=== PATIENT | female | born 1985 | race Caucasian/White ===

== ENCOUNTER 2017-07-27 10:13 | Observation (INO) ==
[2017-07-27] MEDS ORDERED: IOPAMIDOL 100 ML BOTTLE IV ONE (10:14)
[2017-07-27] MEDS ORDERED: ONDANSETRON 4 MG/2 ML VIAL IV ONE (10:33)
[2017-07-27] MEDS: fentaNYL 100 MCG/2 ML VIAL IV PRN ×2 (10:41→11:41)
[2017-07-27] MEDS ORDERED: 0.9 % SODIUM CHLORIDE 1,000 ML IV ONE (10:52)
[2017-07-27 11:06] LABS: Basophils # (Auto) 0.1 K/mcL (0.0-0.3); Basophils % (Auto) 0.8 % (0.0-2.0); Eosinophils # (Auto) 0.1 K/mcL (0.0-0.7); Eosinophils % (Auto) 0.7 % (0.0-7.0); Granulocytes % (Auto) 84.5 % (38.0-78.0); Mean Cell Volume 91.4 fL (80.0-100.0); Mean Corpuscular HGB Conc 33.2 g/dL (31.0-36.0); Mean Corpuscular Hemoglobin 30.3 pg (26.0-34.0); Monocytes # (Auto) 0.5 K/mcL (0.1-0.9); Platelet Count 266 K/mcL (140-440); RBC 4.62 M/mcL (4.00-5.20)
[2017-07-27 11:23] LABS: ALT/SGPT 15 U/l (0-40); Albumin 4.5 gm/dL (3.2-5.2); Albumin/Globulin Ratio 1.7 (1.0-2.3); Alkaline Phosphatase 67 U/L (39-117); Blood Urea Nitrogen 10 mg/dl (6-20); Lipase 53 U/L (7-60)
[2017-07-27 11:58] LABS: Appearance,Urine CLEAR; Bacteria,Urine 0 /hpf (0); Bilirubin,Urine NEG (NEG); Color,Urine STRAW; Glucose,Urine (UA) NEGATIVE (NEG); Leukocyte Esterase,Urine NEG /uL (NEG); Protein,Urine NEG (NEG); Specific Gravity,Urine 1.008 (1.000-1.035); Urine Blood NEG mg/dL (<0.03); Urine RBC 1 /hpf (0-1); Urine Squamous Epithelial Cell < 1 /hpf (0-4); Urine WBC 1 /hpf (0-4); Urobilinogen,Urine NEG (NEG)
--- NOTE | 2017-07-27 12:59 | Cat Scan Report ---
CLINICAL INFORMATION: Left upper quadrant pain, fever and elevated white blood cell count COMPARISON: None. TECHNIQUE: Following enteric contrast, 80 cc of Isovue-300 were injected intravenously, and 60 seconds later, 0.625 mm helical slices were obtained from the mid heart through the subtrochanteric regions. Following reconstruction, 2.5 mm sagittal, coronal and axial reformatted images were processed and reviewed at bone, lung and soft tissue windows. Five minutes later, 0.625 mm helical slices were obtained from the mid heart through the kidneys and viewed at soft tissue windows.The exam was performed using radiation dose optimization techniques including, but not limited to, automated exposure control, adjustment of the mA and/or kV according to patient size and use of iterative reconstruction technique. FINDINGS: Lung bases show no abnormality - no effusion. Visualized heart is normal. Images through the abdomen show moderate hepatomegaly (19 cm in vertical dimension at mid clavicular line) with diffuse fatty change. There are no no focal hepatic lesions. Mild periportal edema is noted. The gallbladder and bile ducts are normal. CBD is 5 mm. Both kidneys, adrenal glands, spleen, pancreas and aorta, including aortic branches, are normal in size, configuration and attenuation without focal lesion. Stomach, small and large bowel show mild symmetric dilatation about mild ileus. Small amount of free fluid in the deep true pelvis. The appendix is slightly dilated - 11 mm however, there is no wall thickening or inflammation in the periappendiceal fat. Two small appendicoliths, less than 4 mm, in the appendiceal lumen. Uterus is anteflexed and normal in size - 8.8 x 4.2 cm. The region of the ovaries are normal. Bone windows show no osseous abnormality IMPRESSION: 1. Moderate hepatomegaly. Portal triad edema which may represent a primary hepatocellular process such as hepatitis. Please correlate with LFTs. 2. Mild ileus 3. Mild dilatation of the appendix, but no definite supportive evidence for appendicitis. Interpreted and Authenticated by: Ruben Perez 07/27/17
--- NOTE | 2017-07-27 13:11 | XRay Report ---
CLINICAL INFORMATION: Chest pain, fever, elevated wbc COMPARISON: None. FINDINGS: The heart size, mediastinum and pulmonary vessels are unremarkable. The lungs are clear. There are no effusions. The bones and soft tissues are within normal limits. IMPRESSION: Normal chest. Interpreted and Authenticated by: Ruben Perez 07/27/17
--- NOTE | 2017-07-27 13:48 | Emergency Department Note ---
ED Note Addendum Note Addendum: Patient been evaluated with nurse practitioner Emelia is mostly complaining of left upper quadrant pain but is having some right lower quadrant pain is white count is elevated and CT does reveal possible early dilated appendix agree with diagnosis and treatment and consult to Dr. Ceja will admit the patient for further evaluation for acute abdomen
[2017-07-27] MEDS ORDERED: PIPERACILLIN SODIUM/TAZOBACTAM 3.375 GM in DEXTROSE 5% IN WATER 50 ML IV ONE (14:11)
--- NOTE | 2017-07-27 14:14 | Emergency Department Note ---
Abdominal Pain HPI - General Chief Complaint: Abdominal Pain Stated Complaint: left upper abdominal pain, under rib Time Seen by Provider: 07/27/17 10:32 Source: patient Mode of arrival: wheelchair Limitations: no limitations - History of Present Illness HPI Narrative: 32-year-old female presents with left upper quadrant abdominal pain since yesterday. States the pain is all over her abdomen but seems to be worse in the left upper quadrant. Is better if she lies in a position. However it still hurts at all times. She has never had anything like this before. Positive chills, unknown fever. Positive nausea. No vomiting. States she has had soft stools but no diarrhea. Does have decreased appetite. No dysuria or frequency. No vaginal drainage. States she does smoke cigarettes as well as marijuana. No other home treatments. Associated symptoms: Reports: nausea, chills, anorexia. Denies: vomiting, diarrhea, constipation, dysuria, hematemesis, hematuria, syncope - Related Data Previous Rx's Medication Instructions Recorded traMADol [Ultram] 50 - 100 mg PO Q4-6HP PRN #20 tab 04/06/17 Allergies Allergy/AdvReac Type Severity Reaction Status Date / Time codeine Allergy Unknown Unknown Verified 07/27/17 10:16 morphine Allergy Unknown Unknown Verified 07/27/17 10:16 latex AdvReac Intermediate Hives Verified 07/27/17 10:16 Review of Systems All systems ED: reviewed and negative except as stated. Abdominal Pain PMH - Past Medical History Medical history: Reports: other (NO heart murmur. ). Denies: DM, seizures, thyroid disease Surgical history ED: Reports: no surgical history - Social History Smoking status: Current every day smoker Alcohol use: Reports: None Drug use: Reports: marijuana (Less than 1 gram a day. (But daily.)) Physical Exam Limitations: no limitations General appearance: alert, in no apparent distress Head: atraumatic, normocephalic, normal inspection Eye: Present: normal appearance. Absent: conjunctival injection ENT: normal exam, normal oropharynx, mucous membranes moist, TM's normal bilaterally, normal external ear exam Neck: Present: normal inspection, trachea midline, tenderness. Absent: lymphadenopathy Chest: Present: normal inspection, symmetric chest wall rise Respiratory: Present: normal lung sounds bilaterally. Absent: respiratory distress, wheezes, accessory muscle use Cardiovascular: Present: regular rate, normal heart sounds Abdominal: Present: soft, tenderness (Diffuse abdominal tenderness throughout with some pinpoint right lower quadrant abdominal tenderness and more severe tenderness left upper quadrant abdomen. No mass.), normal bowel sounds. Absent : distention, rigidity, mass Extremities: Present: normal inspection, normal capillary refill. Absent: pedal edema Back: Absent: CVA tenderness (R), CVA tenderness (L) Neurological: Present: alert, oriented X3 Psychiatric: Present: normal affect, normal mood Skin: Present: warm, dry, intact, normal color. Absent: rash, cyanosis, diaphoresis, erythema Course Course Narrative: At 1400 I did speak with Dr. Ceja, surgeon on-call who agrees to see the patient and will put her in observation due to CT findings. Please see CT results as well as lab results. Patient started on IV Zosyn. Vital Signs Temperature 98.1 F 07/27/17 10:13 Pulse Rate 91 H 07/27/17 10:13 Respiratory Rate 18 07/27/17 10:13 Blood Pressure 117/73 07/27/17 10:13 Pulse Oximetry (%) 100 07/27/17 10:13 Temperature 98.1 F 07/27/17 10:13 Pulse Rate 71 07/27/17 13:57 Respiratory Rate 18 07/27/17 10:13 Blood Pressure 128/81 07/27/17 13:57 Pulse Oximetry (%) 100 07/27/17 13:57 Abdominal Pain - Lab Data Lab results reviewed: Yes I reviewed the patient's lab results. Result diagrams: 07/27/17 10:20 07/27/17 10:20 Lab Results 07/27/17 07/27/17 07/27/17 Range/Units 10:20 10:20 11:19 WBC 17.8 H (4.5-11.0) K/mcL RBC 4.62 (4.00-5.20) M/mcL Hgb 14.0 (12.0-15.0) g/dL Hct 42.2 (36.0-48.0) % MCV 91.4 (80.0-100.0) fL MCH 30.3 (26.0-34.0) pg MCHC 33.2 (31.0-36.0) g/dL RDW 14.0 (11.5-14.5) % Plt Count 266 (140-440) K/mcL MPV 10.0 (7.4-10.4) fL Gran % 84.5 H (38.0-78.0) % Lymph % (Auto) 11.0 L (15.5-49.0) % [place] % (Auto) 3.0 (1.0-12.0) % Eos % (Auto) 0.7 (0.0-7.0) % Baso % (Auto) 0.8 (0.0-2.0) % Gran # 15.0 H (1.8-8.0) K/mcL Lymph # (Auto) 2.0 (1.5-4.8) K/mcL [place] # (Auto) 0.5 (0.1-0.9) K/mcL Eos # (Auto) 0.1 (0.0-0.7) K/mcL Baso # (Auto) 0.1 (0.0-0.3) K/mcL Sodium 140 (133-145) mmol/L Potassium 4.3 (3.3-5.1) mmol/L Chloride 102 (96-108) mmol/L Carbon Dioxide 24 (22-30) mmol/L Anion Gap 14.0 (8-16) BUN 10 (6-20) mg/dl Creatinine 0.8 (0.6-1.1) mg/dl GFR Calculation 97 Glucose 135 H (70-105) mg/dL Calcium 8.8 (8.6-10.4) mg/dl Total Bilirubin < 0.2 (0.0-1.0) mg/dL AST 15 (0-37) U/l ALT 15 (0-40) U/l Alkaline Phosphatase 67 (39-117) U/L Total Protein 7.1 (5.9-8.4) gm/dL Albumin 4.5 (3.2-5.2) gm/dL Globulin 2.6 (2.2-3.7) gm/dL Albumin/Globulin Ratio 1.7 (1.0-2.3) Lipase 53 (7-60) U/L Urine Color Straw Urine Appearance Clear Urine pH 8.0 (5.0-9.0) Ur Specific [place] 1.008 (1.000-1.035) Urine Protein Neg (NEG) mg/dL Urine Glucose (UA) Negative (NEG) mg/dL Urine Ketones Neg (NEG) mg/dL Urine Occult Blood Neg (<0.03) mg/dL Urine Nitrate Neg (NEG) Urine Bilirubin Neg (NEG) mg/dL Urine Urobilinogen Neg (NEG) mg/dL Ur Leukocyte Esterase Neg (NEG) /uL Urine RBC 1 (0-1) /hpf Urine WBC 1 (0-4) /hpf Ur Squamous Epith Cells < 1 (0-4) /hpf Urine Bacteria 0 (0) /hpf Ur Culture Indicated? No - Radiology Data Radiology results reviewed: Yes I reviewed the patient's radiology results. Disposition Pt seen by [employer] [facility]NAGER/PA only: No Clinical Impression: Abdominal pain, Ileus Disposition: Xfer As Outpt/Obs ([facility]) Condition: Fair Referrals: Estrella Ceja MD [Physician] - Time of Disposition: 14:15
[2017-07-27] MEDS ORDERED: ONDANSETRON 4 MG/2 ML VIAL IV PRN ×2 (14:19→16:12)
[2017-07-27] MEDS ORDERED: fentaNYL 100 MCG/2 ML VIAL IV PRN ×2 (14:19→16:07)
[2017-07-27] MEDS ORDERED: ACETAMINOPHEN 1,000 MG/100 ML BOTTLE IV PRN (16:07)
--- NOTE | 2017-07-27 16:19 | General Surg History&Physical ---
History of Present Illness Patient information: Note initiated : 07/27/17 at 4:17 pm Service Date, if different from initiated Date: [] Patient: Abdulaziz Roman a 32 y/o F admitted on 07/27/17 for left upper abdominal pain, under rib. Chief Complaint: [left upper quadrant abdominal pain] HPI: Ms. Roman is a 32 year old F was admitted for evaluation of severe left upper quadrant abdominal pain. The patient states that about 10 AM yesterday she developed severe left upper quadrant pain after eating. Pain continued throughout the day and night. She had nausea but no vomiting. She did not have diarrhea. She had some abdominal bloating.. She denies having right- sided abdominal pain. She denies rectal bleeding or melena.. She has not had similar pain in the past. She denies back pain, weight loss. Patient was treated in the emergency room and CT scan was unremarkable except for nonspecific dilation of the appendix in the right lower quadrant. No pathology was noted in the left upper quadrant. Her white count is elevated at 17,000. Review of Systems - EENT Nose, mouth and throat: dental pain - Cardiovascular no chest pain with activity, no dyspnea on exertion, no irregular heart rhythm, no palpatations, no rapid heart rate, no syncope - Respiratory no cough, no wheezing, no pain on inspirtation, no chest congestion, no pain with cough - Gastrointestinal abdominal pain, nausea, no change in bowel habits, no heartburn, no melena, no vomiting - Genitourinary Genitourinary: other (occasional pain with urination but no dysuria urgency or frequency) - Musculoskeletal no joint swelling, no myalgias, no stiffness - Integumentary no changing lesions, no new lesions, no non-healing lesions, no pruritus, no rash - Neurological dizziness - Psychiatric no anxiety, no depression, no paranoia - Endocrine no excessive sweating, no palpitations, no polyphagia, no polyuria - Hematologic/Lymphatic no easy bleeding, no easy bruising, no lymphadenopathy - Allergic/Immunologic no tongue swelling, no throat swelling, no uticaria, no wheezing, no lip swelling Past History Past medical history: No chronic medical illness Past surgical history: No surgical procedures Past family history: Mother is alive at age 53 with diabetes mellitus coronary artery disease and bipolar disorder Father age 43 due to complications of severe alcoholism Multiple siblings are all healthy Past social history: Unemployed Smokes 1 pack of cigarettes per day History of alcohol use but stopped 5 years ago Daily marijuana use Medications and Allergies Home Medications Medication Instructions Recorded Confirmed Type traMADol [Ultram] 50 - 100 mg PO Q4-6HP PRN #20 tab 04/06/17 07/27/17 Rx Allergies Allergy/AdvReac Type Severity Reaction Status Date / Time codeine Allergy Unknown Unknown Verified 07/27/17 10:16 morphine Allergy Unknown Unknown Verified 07/27/17 10:16 latex AdvReac Intermediate Hives Verified 07/27/17 10:16 Exam Temp Pulse Resp BP Pulse Ox 97.0 F 56 L 16 110/73 100 07/27/17 15:15 07/27/17 15:15 07/27/17 15:15 07/27/17 15:15 07/27/17 15:15 - General physical appearance well developed, well nourished, no distress - Eyes PERRL, normal ocular movement - ENT normal pinna, normal nares, normal mucosa, no hearing loss, no congestion, poor senior living - Head Head exam IM: Present: atraumatic, normal inspection, normocephalic - Neck no masses, no bruits, trachea midline, no lymphadectomy, no venous distension - Cardiovascular Cardiovascular exam IM: Present: normal rate and rhythm, RRR, +S1, +S2. Absent : JVD, tachycardia - Respiratory normal expansion, normal respiratory effort, clear to percussion, clear to auscultation - Abdomen Abdomen: Present: soft, tender (mild tenderness in left upper quadrant near the costal margin; no rib cage tenderness; no palpable mass), bowel sounds Hernia: Present: none - Integumentary Present: no rash, no growths, no abnormal pigmentation - Neurologic Present: normal coordination, normal sensation - Musculoskeletal Present: normal gait, normal posture - Psychiatric Present: oriented to time, oriented to person, oriented to place, speech is normal, memory intact Assessment and Plan (1) Left upper quadrant abdominal pain of unknown etiology Pantoprazole 40 mg IV twice a day Dicyclomine 20 mg by mouth 4 times a day acetaminophen 1 g IV every 6 hours Check urine drug screen Clear liquid diet as tolerated Recheck labs in the morning Status: Acute
[2017-07-27] MEDS: 0.9 % SODIUM CHLORIDE 1,000 ML IV SCH (16:55)
[2017-07-27 17:50] LABS: Amphetamine Screen,Urine NONE DETECTED (NONDETECTED); Benzodiazepines Screen,Urine NONE DETECTED (NONDETECTED); Cocaine Screen,Urine NONE DETECTED (NONDETECTED); Opiate Screen,Urine NONE DETECTED (NONDETECTED); Oxycodone, Urine Screen NONE DETECTED (NONDETECTED)
[2017-07-27] MEDS: PANTOPRAZOLE 40 MG VIAL IV SCH (17:57)
[2017-07-27] MEDS: PIPERACILLIN SODIUM/TAZOBACTAM 3.375 GM in DEXTROSE 5% IN WATER 50 ML IV SCH ×2 (17:58→23:41)
[2017-07-27] MEDS: DICYCLOMINE 20 MG TABLET PO SCH ×2 (17:58→23:40)
[2017-07-28] MEDS: 0.9 % SODIUM CHLORIDE 1,000 ML IV SCH ×2 (04:25→12:41)
[2017-07-28] MEDS: PIPERACILLIN SODIUM/TAZOBACTAM 3.375 GM in DEXTROSE 5% IN WATER 50 ML IV SCH ×2 (05:20→11:42)
[2017-07-28 07:46] LABS: Basophils # (Auto) 0 K/mcL (0.0-0.3); Basophils % (Auto) 0.5 % (0.0-2.0); Eosinophils # (Auto) 0.2 K/mcL (0.0-0.7); Eosinophils % (Auto) 2.3 % (0.0-7.0); Granulocytes % (Auto) 71.9 % (38.0-78.0); Lymphocytes # (Auto) 1.9 K/mcL (1.5-4.8); Lymphocytes % (Auto) 20.5 % (15.5-49.0); Mean Cell Volume 92.1 fL (80.0-100.0); Mean Corpuscular HGB Conc 33.3 g/dL (31.0-36.0); Mean Corpuscular Hemoglobin 30.7 pg (26.0-34.0); Monocytes # (Auto) 0.4 K/mcL (0.1-0.9); Monocytes % (Auto) 4.8 % (1.0-12.0); Platelet Count 199 K/mcL (140-440); RBC 3.95 M/mcL (4.00-5.20); Red Cell Distribution Width 13.8 % (11.5-14.5)
[2017-07-28] MEDS: PANTOPRAZOLE 40 MG VIAL IV SCH (07:54)
[2017-07-28 07:57] LABS: ALT/SGPT 13 U/l (0-40); Albumin 3.6 gm/dL (3.2-5.2); Albumin/Globulin Ratio 1.6 (1.0-2.3); Alkaline Phosphatase 52 U/L (39-117); Bilirubin,Direct < 0.2 mg/dL (0.0-0.3); Blood Urea Nitrogen 5 mg/dl (6-20); Gamma Glutamyl Transpeptidase 12 U/L (5-36); Uric Acid 1.7 mg/dL (2.5-8.0)
[2017-07-28] MEDS: DICYCLOMINE 20 MG TABLET PO SCH ×2 (09:54→12:41)
--- NOTE | 2017-07-28 12:09 | General Surgery Progress Note ---
Subjective Patient reports: feels better, pain is less, tolerating liquids well, flatus, bowel movement, afebrile Narrative: Note initiated : 07/28/17 at 12:07 pm Service Date, if different from initiated Date: [] Patient: Abdulaziz Roman 32 y/o F admitted on 07/27/17 for Left Upper Abdominal Pain, Under Rib. Chief Complaint: [patient feels much better. Her nausea and abdominal pain has resolved.. Her white blood count has returned to normal. She is able to eat full liquids without difficulty and has started on a regular diet. She has no complaints and no physical findings. She is stable for discharge] Objective Temp Pulse Resp BP Pulse Ox 98.7 F 54 L 20 109/65 99 07/28/17 11:54 07/28/17 07:40 07/28/17 11:54 07/28/17 11:54 07/28/17 11:54 - Additional Data Intake & Output - Last 24 hours: Intake & Output 07/26/17 07/27/17 07/28/17 07/29/17 05:59 05:59 05:59 05:59 Intake Total 2450 / 2450 Output Total 1850 / 1850 500 / 500 Balance 600 / 600 -500 / -500 Weight 120 lb - General physical appearance well developed, well nourished, no distress - Eyes PERRL, normal ocular movement - ENT normal pinna, normal nares, normal mucosa, no hearing loss, no congestion - Neck no masses, no bruits, trachea midline, no lymphadectomy, no venous distension - Respiratory normal expansion, normal respiratory effort, clear to auscultation - Cardiovascular Cardiovascular exam: Present: normal rate and rhythm, RRR, +S1, +S2. Absent: JVD, tachycardia - Abdomen non tender, bowel sounds (present), surgical scars (none), masses (none) - Integumentary no rash, no growths, no abnormal pigmentation - Neurologic normal coordination, normal sensation - Musculoskeletal normal gait, normal posture - Psychiatric oriented to time - Labs 07/28/17 05:40 07/28/17 05:40 Diabetes panel 07/28/17 Range/Units 05:40 Sodium 140 (133-145) mmol/L Potassium 4.5 (3.3-5.1) mmol/L Chloride 105 (96-108) mmol/L Carbon Dioxide 23 (22-30) mmol/L BUN 5 L (6-20) mg/dl Creatinine 0.7 (0.6-1.1) mg/dl Glucose 96 (70-105) mg/dL Calcium 8.3 L (8.6-10.4) mg/dl AST 14 (0-37) U/l ALT 13 (0-40) U/l Alkaline Phosphatase 52 (39-117) U/L Total Protein 5.9 (5.9-8.4) gm/dL Albumin 3.6 (3.2-5.2) gm/dL Triglycerides 75 (<150) mg/dl Calcium panel 07/28/17 Range/Units 05:40 Calcium 8.3 L (8.6-10.4) mg/dl Phosphorus 3.4 (2.7-4.5) mg/dL Albumin 3.6 (3.2-5.2) gm/dL Pituitary panel 07/28/17 Range/Units 05:40 Sodium 140 (133-145) mmol/L Potassium 4.5 (3.3-5.1) mmol/L Chloride 105 (96-108) mmol/L Carbon Dioxide 23 (22-30) mmol/L BUN 5 L (6-20) mg/dl Creatinine 0.7 (0.6-1.1) mg/dl Glucose 96 (70-105) mg/dL Calcium 8.3 L (8.6-10.4) mg/dl Adrenal panel 07/28/17 Range/Units 05:40 Sodium 140 (133-145) mmol/L Potassium 4.5 (3.3-5.1) mmol/L Chloride 105 (96-108) mmol/L Carbon Dioxide 23 (22-30) mmol/L BUN 5 L (6-20) mg/dl Creatinine 0.7 (0.6-1.1) mg/dl Glucose 96 (70-105) mg/dL Calcium 8.3 L (8.6-10.4) mg/dl Total Bilirubin 0.4 (0.0-1.0) mg/dL AST 14 (0-37) U/l ALT 13 (0-40) U/l Alkaline Phosphatase 52 (39-117) U/L Total Protein 5.9 (5.9-8.4) gm/dL Albumin 3.6 (3.2-5.2) gm/dL Assessment and Plan (1) Left upper quadrant abdominal pain of unknown etiology Status: Acute Assessment and plan: Patient is now asymptomatic and is discharged home on dicyclomine and pantoprazole She will be followed up in the office on an as-needed basis Current Visit: Yes - Time Spent With Patient Total time spent is greater than 50% in coordination of care (as documented) at patient's floor/unit and/or counseling patient:
== END 2017-07-28 12:45 | disposition home or self-care (01) ==
LOC: ED 10:13 → MEDSUR 15:00 → INTOOBSV 15:00
PROVIDERS: ADMIT Family Medicine Adult Medicine; ATTEND Family Medicine Adult Medicine